=== PATIENT | female | born 1985 | race Hispanic/Latino ===

== ENCOUNTER 2017-11-15 14:21 | Emergency (ER) | payer OTHER ==
[2017-11-15] MEDS ORDERED: Sodium Chloride 0.9% 1,000 ML IV STA (15:26)
[2017-11-15 16:12] LABS: BASO # 0.1 K/uL (0.0-0.2); BASO % 1.1 % (0.0-2.0); EOS # 0.2 K/uL (0.0-0.7); EOS % 2.5 % (0.0-4.0); HEMOGLOBIN 13.1 g/dL (12.0-16.0); LYMPH # 1.9 K/uL (1.0-4.3); LYMPH % 23.8 % (20.0-40.0); MEAN CELL VOLUME 75.5 fl (81.0-99.0); MEAN CORPUSCULAR HEMOGLOBIN 24.8 pg (27.0-31.0); MEAN CORPUSCULAR HGB CONC 32.8 g/dL (33.0-37.0); MEAN PLATELET VOLUME 8.4 fl (7.2-11.7); MONO # 0.5 K/uL (0.0-0.8); MONO % 6.1 % (0.0-10.0); NEUT # 5.3 K/uL (1.8-7.0); NEUT % 66.5 % (50.0-75.0); RBC 5.3 Mil/uL (3.80-5.20); RED CELL DISTRIBUTION WIDTH 17.1 % (11.5-14.5)
[2017-11-15 16:23] LABS: BLOOD UREA NITROGEN 11 mg/dl (7-17); CALCIUM 9.3 mg/dL (8.4-10.2); GFR AFRICAN-AMERICAN > 60; GFR NON-AFRICAN AMERICAN > 60
[2017-11-15 16:29] VITALS: O2SAT 99
--- NOTE | 2017-11-15 16:40 | ED PDOC ---
HPI: Chest Pain Time Seen by Provider: 11/15/17 14:57 Chief Complaint (Nursing): Palpitations Chief Complaint (Provider): Palpitations History Per: Patient History/Exam Limitations: no limitations Onset/Duration Of Symptoms: Persistent (x2 weeks) Current Symptoms Are (Timing): Better Additional Complaint(s): Lani Ac is a 32 year old female with a history of anemia that presents to the ED with a chief complaint of intermittent palpitations and chest pain that she has been experiencing for the past two weeks. Patient reports that each time an episode occurs, it is associated with dizziness and the feeling as though she is going to pass out, though she never has. Her most recent episode occurred while she was at work earlier today, and she was suddenly overcome with her usual symptoms as well as a hot flash, blurry vision, and a feeling of "cloudiness." She denies any leg pain or swelling. Patient currently reports feeling better because she is lying down, but she states that her dizziness always goes away when her palpitations resolve, so the symptoms are not dependent on her position. Past Medical History Reviewed: Historical Data, Nursing Documentation, Vital Signs Vital Signs: Last Vital Signs Temp 98.2 F 11/15/17 21:11 Pulse 72 11/15/17 21:11 Resp 18 11/15/17 21:11 BP 124/76 11/15/17 21:11 Pulse Ox 99 11/16/17 04:54 - Medical History PMH: Anemia - Surgical History Surgical History: No Surg Hx - Family History Family History: States: Unknown Family Hx - Immunization History Hx Tetanus Toxoid Vaccination: No Hx Influenza Vaccination: No Hx Pneumococcal Vaccination: No - Allergies Allergies/Adverse Reactions: Allergies Allergy/AdvReac Type Severity Reaction Status Date / Time No Known Allergies Allergy Verified 11/15/17 14:26 ESPERANZA Risk Score for UA/NSTEMI - ESPERANZA Risk Score Age > 64: NO 3 or more CAD Risk Factors: NO Known CAD (Stenosis greater than 50%): NO Aspirin use in past 7 days: NO Severe Angina: NO EKG ST changes greater than 0.5mm: NO Positive Cardiac Marker: NO ESPERANZA Score: 0 Risk %: 5% Wells Criteria for PE - Wells Criteria for Pulmonary Embolism Clinical Signs and Symptoms of DVT: No P.E is #1 Diagnosis, or Equally Likely: No Heart Rate >100: No Immobilization at least 3 days;Surgery previous 4 weeks: No Previous, objectively diagnosed PE or DVT: No Hemoptysis: No Malignancy w/treatment within 6 months, or palliative: No Total Score: 0 Review of Systems ROS Statement: Except As Marked, All Systems Reviewed And Found Negative Eyes: Positive for: Vision Change (blurry vision) Cardiovascular: Positive for: Chest Pain, Palpitations Neurological: Positive for: Dizziness, Other (feeling as though she is "about to pass out," but no syncope has occurred) Physical Exam - Reviewed Nursing Documentation Reviewed: Yes Vital Signs Reviewed: Yes - Physical Exam Appears: Positive for: Non-toxic, No Acute Distress Head Exam: Positive for: ATRAUMATIC, NORMOCEPHALIC Skin: Positive for: Normal Color, Warm Eye Exam: Positive for: Normal appearance, EOMI, PERRL Neck: Positive for: Normal, Supple Cardiovascular/Chest: Positive for: Regular Rate, Rhythm. Negative for: Murmur Respiratory: Positive for: Normal Breath Sounds. Negative for: Wheezing, Respiratory Distress Gastrointestinal/Abdominal: Positive for: Normal Exam, Soft. Negative for: Tenderness Back: Positive for: Normal Inspection. Negative for: L CVA Tenderness, R CVA Tenderness Extremity: Positive for: Normal ROM. Negative for: Tenderness, Pedal Edema, Calf Tenderness, Swelling Neurologic/Psych: Positive for: Alert, Oriented. Negative for: Motor/Sensory Deficits - Laboratory Results Result Diagrams: 11/15/17 16:04 11/15/17 16:04 - ECG O2 Sat by Pulse Oximetry: 99 (RA) Pulse Ox Interpretation: Normal Medical Decision Making Medical Decision Making: Impression: Palpitations and Chest Pain, ddx include Vasovagal near syncopal episode, r/o cardiac arrhythmias, r/o PE Plan: * EKG * BMP * Troponin I * Urine Preg * NaCl 1000 mLs at 1000 mLs/hr * Reevaluation EKG shows NSR at rate of 84 BPM, normal QRS and no ST changes. Patient's D-Dimer is elevated, CT Angio Chest ordered. 19:00 Patient signed out to Dr. Vasquez pending CT Angio Chest. Scribe Attestation: Documented by Pamella Rivera, acting as a scribe for Nicho Rowe MD. Provider Scribe Attestation: All medical record entries made by the Scribe were at my direction and personally dictated by me. I have reviewed the chart and agree that the record accurately reflects my personal performance of the history, physical exam, medical decision making, and the department course for this patient. I have also personally directed, reviewed, and agree with the discharge instructions and disposition. Disposition - Clinical Impression Clinical Impression: Palpitations - Patient ED Disposition Is Patient to be Admitted: Transfer of Care Counseled Patient/Family Regarding: Studies Performed, Diagnosis - Disposition Disposition: Transfer of Care Disposition Time: 19:00 Condition: STABLE Instructions: Palpitations (ED) Patient Signed Over To: Logan Vasquez
[2017-11-15] MEDS ORDERED: Iodixanol 320 mg/ml 50 ml Sol IV ONE (17:22)
[2017-11-15] MEDS ORDERED: Sodium Chloride 0.9% 50 ML IV ONE (17:22)
--- NOTE | 2017-11-15 18:56 | ED PDOC ---
- Laboratory Results Result Diagrams: 11/15/17 16:04 11/15/17 16:04 - ECG O2 Sat by Pulse Oximetry: 99 (RA) Medical Decision Making Medical Decision Makin:00 Patient signed out to me by Dr. Rowe pending CT Angio Chest. Scribe Attestation: Documented by Pamella Rivera, acting as a scribe for Libby Gage MD. Provider Scribe Attestation: All medical record entries made by the Scribe were at my direction and personally dictated by me. I have reviewed the chart and agree that the record accurately reflects my personal performance of the history, physical exam, medical decision making, and the department course for this patient. I have also personally directed, reviewed, and agree with the discharge instructions and disposition. Disposition - Clinical Impression Clinical Impression: Palpitations, Chest pain - Disposition Condition: FAIR Forms: [employer] ([place]wegian)
--- NOTE | 2017-11-15 19:15 | ED PDOC ---
- Laboratory Results Result Diagrams: 11/15/17 16:04 11/15/17 16:04 - ECG O2 Sat by Pulse Oximetry: 99 (RA) Medical Decision Making Medical Decision Makin:00 Patient signed out to me by Dr. Rowe pending CT Angio Chest. CT Angio Chest FINDINGS: Pulmonary arteries: No acute embolus in the main, lobar, segmental or subsegmental pulmonary arteries. Aorta: No dissection or other acute abnormality of the imaged aorta. No thoracic aortic aneurysm. Lungs: No pulmonary airspace consolidation. The central airways are patent. Pleural space: No pleural fluid collection. No pneumothorax. Heart: No cardiomegaly. No significant pericardial fluid collection. Mediastinum: A 2.7 x 1.9 cm soft tissue attenuation focus with slightly concave margins in the anterior superior mediastinum is most consistent with residual thymus tissue. Bones/joints: No acute findings. Soft tissues: No acute findings. Lymph nodes: No acute findings. IMPRESSION: No pulmonary embolus or other evident acute abnormality. 20:50 Patient is feeling better and is stable for discharge home. Clinical Diagnosis: Palpitations Scribe Attestation: Documented by Pamella Rivera, acting as a scribe for Logan Vasquez MD. Provider Scribe Attestation: All medical record entries made by the Scribe were at my direction and personally dictated by me. I have reviewed the chart and agree that the record accurately reflects my personal performance of the history, physical exam, medical decision making, and the department course for this patient. I have also personally directed, reviewed, and agree with the discharge instructions and disposition. Disposition - Clinical Impression Clinical Impression: Palpitations - POA Present On Arrival: None - Disposition Disposition: Routine/Home Disposition Time: 20:50 Condition: STABLE Instructions: Palpitations (ED) Forms: [employer] ([place])
[2017-11-15 21:12] VITALS: BP 124/76; PULSE 72; RESP 18; TEMP 98.2
--- NOTE | 2017-11-16 08:39 | CARD ---
APPROVED REPORT EKG Measurement Heart [id number] <Conclusion> Normal sinus rhythm with sinus arrhythmia Normal ECG
--- NOTE | 2017-11-16 08:43 | CT ---
PROCEDURE: CT Chest with contrast (Pulmonary Angiogram) HISTORY: Chest pain COMPARISON: None available. TECHNIQUE: Axial computed tomography images were obtained of the chest in the pulmonary arterial phase of enhancement. Coronal and sagittal reformatted images were created and reviewed. Intravenous contrast dose: 90 mL Visipaque 320 Radiation dose: Total exam DLP = 380.81 mGy-cm. This CT exam was performed using one or more of the following dose reduction techniques: Automated exposure control, adjustment of the mA and/or kV according to patient size, and/or use of iterative reconstruction technique. FINDINGS: PULMONARY ARTERIES: There are no filling defects in the pulmonary arteries to suggest acute pulmonary embolism. . AORTA: No aortic aneurysm or dissection. LUNGS: The lungs are well inflated. No pulmonary nodule, mass or consolidation. There are no endobronchial lesions. PLEURAL SPACES: No pleural effusions or pneumothorax. HEART: The heart is normal in size. No pericardial effusion. LYMPH NODES: No pathologic hilar or mediastinal lymphadenopathy. BONES, CHEST WALL: No fracture or destructive lesion within normal limits for the patient's age. OTHER FINDINGS: There is low-density soft tissue with concave margins in the anterior mediastinum most compatible with residual thymus. . IMPRESSION: 1. No CTA evidence for acute pulmonary embolism. 2. Clear lungs. A preliminary report was provided by [employer]
== END 2017-11-15 21:12 | disposition home or self-care (01) ==
LOC: H.ER 14:21
DX: R00.2 Palpitations (principal); D64.9 Anemia, unspecified
CPT/HCPCS: 71275; 80048; 81025; 84484; 85025; 85378; 93005; 99283; J7040; Q9967